=== PATIENT | male | born 1965 | race African-American/Black ===

== ENCOUNTER 2018-05-14 17:30 | Emergency (ER) | payer MEDICAID ==
[~2018-05-14] VITALS: Ht 172.7 cm; Wt 75.0 kg
[2018-05-14] MEDS ORDERED: PHENYTOIN SODIUM EXTENDED 100MG CAPSULE PO ONE (23:30)
[2018-05-14 23:33] VITALS: BP 123/79
== END 2018-05-14 23:33 | disposition home or self-care (01) ==
LOC: ER 17:30
DX: R56.9 Unspecified convulsions (principal); Z76.0 Encounter for issue of repeat prescription; F12.10 Cannabis abuse, uncomplicated; I10 Essential (primary) hypertension; J45.909 Unspecified asthma, uncomplicated; Z88.6 Allergy status to analgesic agent
CPT/HCPCS: 99283

== ENCOUNTER 2018-07-04 06:26 | Emergency (ER) | payer OTHER ==
[~2018-07-04] VITALS: Ht 175.3 cm; Wt 69.0 kg
[2018-07-04] MEDS ORDERED: SODIUM CHLORIDE 0.9% 1,000 ML IV ONE (07:01)
[2018-07-04] MEDS ORDERED: TETANUS, DIPHTHERIA, PERTUSSIS VAC/PF 0.5ML (>7YR OLD) IM ONE (07:15)
[2018-07-04] MEDS ORDERED: LIDOCAINE 1%/EPI 1:100,000 10 ML VIAL IJ ONE (07:15)
[2018-07-04 07:59] LABS: BASOPHILS % 0.6 % (0.0-2.0); EOSINOPHILS % 1.4 % (0.0-5.0); HEMATOCRIT. 39.8 % (42.0-52.0); HEMOGLOBIN. 13.3 g/dL (14.0-18.0); LYMPHOCYTES % 39.5 % (20.0-50.0); MEAN CORPUSCULAR HEMOGLOBIN 34.8 pg (28.0-32.0); MEAN CORPUSCULAR VOLUME 104.3 fL (80.0-94.0); MEAN PLATELET VOLUME 10.1 fl (7.4-10.4); MONOCYTES % 12.1 % (2.0-8.0); NEUTROPHILS % 46.4 % (40.0-76.0); PLATELET 97 x1000/uL (130-400); RED BLOOD CELL COUNT 3.82 mill/uL (4.7-6.1); RED CELL DISTRIBUTION WIDTH 12.9 % (11.6-14.6)
[2018-07-04 08:05] LABS: CHLORIDE 104 mEq/L (98-107)
[2018-07-04 08:10] LABS: ETHANOL BLOOD < 10 mg/dL
[2018-07-04 08:27] LABS: CARBAMAZEPINE < 0.5 ug/mL (4-12); PHENOBARBITAL < 2.1 ug/mL (15.0-40.0)
[2018-07-04] MEDS ORDERED: PHENYTOIN SODIUM 1,000 MG in SODIUM CHLORIDE 0.9% 100 ML IV ONE (08:30)
[2018-07-04] MEDS ORDERED: CARBAMAZEPINE 100MG TABLET CHEW PO ONE (08:30)
[2018-07-04] MEDS ORDERED: ACETAMINOPHEN 325MG TABLET PO ONE (10:00)
[2018-07-04 11:52] VITALS: BP 136/83
== END 2018-07-04 12:52 | disposition home or self-care (01) ==
LOC: ER 06:41
DX: S01.512A Laceration without foreign body of oral cavity, initial encounter (principal); R56.9 Unspecified convulsions; F12.10 Cannabis abuse, uncomplicated; J45.909 Unspecified asthma, uncomplicated; I10 Essential (primary) hypertension; W18.39XA Other fall on same level, initial encounter; Y93.89 Activity, other specified; Y92.89 Other specified places as the place of occurrence of the external cause; Y99.8 Other external cause status; Z88.6 Allergy status to analgesic agent
CPT/HCPCS: 36415; 70450; 70486; 80053; 80156; 80165; 80184; 80185; 82962; 85025; 85610; 87186; 90471; 90715; 96365; 96366; 99284; J1165; J3490; J7030; J7050; Z7610

== ENCOUNTER 2020-10-14 10:03 | Emergency (ER) | payer MEDICAID, OTHER ==
[~2020-10-14] VITALS: Ht 182.9 cm; Wt 87.0 kg
[2020-10-14] MEDS ORDERED: SODIUM CHLORIDE 0.9% 1,000 ML IV ONE (11:15)
[2020-10-14 11:26] LABS: BASOPHILS % 0.7 % (0.0-2.0); HEMATOCRIT. 39.7 % (42.0-52.0); HEMOGLOBIN. 13.8 g/dL (14.0-18.0); LYMPHOCYTES % 33.8 % (20.0-50.0); MEAN CORPUSCULAR HEMOGLOBIN 36.1 pg (28.0-32.0); MEAN CORPUSCULAR VOLUME 103.9 fL (80.0-94.0); MEAN PLATELET VOLUME 9.1 fl (7.4-10.4); MONOCYTES % 13.7 % (2.0-8.0); NEUTROPHILS % 50.8 % (40.0-76.0); PLATELET 113 x1000/uL (130-400); RED BLOOD CELL COUNT 3.82 mill/uL (4.7-6.1); RED CELL DISTRIBUTION WIDTH 12.5 % (11.6-14.6)
[2020-10-14 11:30] LABS: CHLORIDE 98 mEq/L (98-107)
[2020-10-14 11:37] LABS: ETHANOL BLOOD < 10 mg/dL
[2020-10-14 11:38] LABS: PHENOBARBITAL < 2.1 ug/mL (15.0-40.0)
[2020-10-14 11:44] LABS: CARBAMAZEPINE 4.7 ug/mL (4-12)
[2020-10-14 11:45] LABS: VALPROIC ACID < 3.0 ug/mL (50-100)
[2020-10-14 12:02] LABS: *BARBITURATES SCREEN URINE NEGATIVE (NEGATIVE); *BENZODIAZEPINES SCREEN URINE NEGATIVE (NEGATIVE)
[2020-10-14 12:03] LABS: *AMPHETAMINES SCREEN URINE NEGATIVE (NEGATIVE); *COCAINE SCREEN URINE PRESUMTIVE POSITIVE (NEGATIVE); CANNABINOID URINE SCREEN PRESUMTIVE POSITIVE (NEGATIVE); METHADONE URINE SCREEN NEGATIVE (NEGATIVE); OPIATES URINE SCREEN NEGATIVE (NEGATIVE); PHENCYCLIDINE URINE SCREEN NEGATIVE (NEGATIVE)
[2020-10-14] MEDS ORDERED: PHENYTOIN SODIUM 1,000 MG in SODIUM CHLORIDE 0.9% 100 ML IV ONE (12:45)
[2020-10-14] MEDS ORDERED: CARBAMAZEPINE 200MG TABLET PO ONE (12:45)
[2020-10-14] MEDS ORDERED: PHEN100C4 MT (13:06)
[2020-10-14] MEDS ORDERED: CARB200T MT (13:06)
[2020-10-14 15:00] VITALS: BP 134/76
== END 2020-10-14 15:14 | disposition home or self-care (01) ==
LOC: ER 10:15
DX: R56.9 Unspecified convulsions (principal); J45.909 Unspecified asthma, uncomplicated; I10 Essential (primary) hypertension; Z86.73 Personal history of transient ischemic attack (TIA), and cerebral infarction without residual deficits; F12.10 Cannabis abuse, uncomplicated; Z88.6 Allergy status to analgesic agent
CPT/HCPCS: 36415; 80053; 80156; 80165; 80184; 80185; 80305; 80320; 83735; 85025; 93005; 96361; 96365; 99285; C1893; J1165; J7030; J7050; Z7610; G0480

== ENCOUNTER 2021-10-07 08:42 | Emergency (ER) | payer MEDICAID, OTHER ==
[~2021-10-07] VITALS: Ht 180.3 cm; Wt 81.0 kg
[~2021-10-07 08:42] MED LIST: CARB200T MT; PHEN100C4 MT
[2021-10-07 10:05] LABS: CLARITY URINE CLEAR (CLEAR); COLOR URINE YELLOW (YELLOW); KETONES URINE NEGATIVE (NEGATIVE); LEUKOCYTE ESTERASE URINE NEGATIVE (NEGATIVE); NITRITE URINE NEGATIVE (NEGATIVE); OCCULT BLOOD URINE NEGATIVE (NEGATIVE); PH URINE 6.5 (4.5-8.0); PROTEIN URINE NEGATIVE (NEGATIVE); SPECIFIC GRAVITY URINE 1.011 (1.005-1.030)
[2021-10-07 10:07] LABS: BASOPHILS % 0.5 % (0.0-2.0); EOSINOPHILS % 1.2 % (0.0-5.0); HEMATOCRIT. 40.4 % (42.0-52.0); HEMOGLOBIN. 13.9 g/dL (14.0-18.0); LYMPHOCYTES % 23.1 % (20.0-50.0); MEAN CORPUSCULAR HEMOGLOBIN 37.3 pg (28.0-32.0); MEAN CORPUSCULAR VOLUME 108.7 fL (80.0-94.0); MEAN PLATELET VOLUME 9.1 fl (7.4-10.4); NEUTROPHILS % 64.2 % (40.0-76.0); PLATELET 102 x1000/uL (130-400); RED BLOOD CELL COUNT 3.71 mill/uL (4.7-6.1); RED CELL DISTRIBUTION WIDTH 12.4 % (11.6-14.6)
[2021-10-07 10:20] LABS: CHLORIDE 105 mEq/L (98-107)
[2021-10-07 10:30] LABS: ETHANOL BLOOD < 10 mg/dL
[2021-10-07 10:31] LABS: CARBAMAZEPINE < 0.5 ug/mL (4-12)
[2021-10-07] MEDS ORDERED: CARBAMAZEPINE 200MG TABLET PO ONE (10:45)
[2021-10-07 10:58] LABS: *AMPHETAMINES SCREEN URINE NEGATIVE (NEGATIVE); *BARBITURATES SCREEN URINE NEGATIVE (NEGATIVE); *BENZODIAZEPINES SCREEN URINE NEGATIVE (NEGATIVE); *COCAINE SCREEN URINE PRESUMTIVE POSITIVE (NEGATIVE); CANNABINOID URINE SCREEN PRESUMTIVE POSITIVE (NEGATIVE); METHADONE URINE SCREEN NEGATIVE (NEGATIVE); OPIATES URINE SCREEN NEGATIVE (NEGATIVE); PHENCYCLIDINE URINE SCREEN NEGATIVE (NEGATIVE)
[2021-10-07 11:29] VITALS: BP 142/75
[2021-10-07] MEDS ORDERED: CARBAMAZEPINE 200MG TABLET PO NR (11:30)
== END 2021-10-07 13:03 | disposition home or self-care (01) ==
LOC: ER 08:42
DX: G40.909 Epilepsy, unspecified, not intractable, without status epilepticus (principal); I10 Essential (primary) hypertension; J45.909 Unspecified asthma, uncomplicated; F12.10 Cannabis abuse, uncomplicated; F10.21 Alcohol dependence, in remission; Z86.73 Personal history of transient ischemic attack (TIA), and cerebral infarction without residual deficits; Z88.6 Allergy status to analgesic agent
CPT/HCPCS: 36415; 80053; 80156; 80185; 80305; 80320; 81003; 82962; 85025; 99283; G0480

== ENCOUNTER 2021-12-16 12:44 | Emergency (ER) | payer MEDICAID ==
[~2021-12-16] VITALS: Ht 175.3 cm; Wt 82.0 kg
[2021-12-16] MEDS ORDERED: IBUPROFEN 600MG TABLET PO STA (13:26)
[2021-12-16] MEDS ORDERED: SODIUM CHLORIDE 0.9% 1,000 ML IV ONE (13:30)
[2021-12-16 14:28] LABS: CLARITY URINE CLEAR (CLEAR); COLOR URINE YELLOW (YELLOW); KETONES URINE NEGATIVE (NEGATIVE); LEUKOCYTE ESTERASE URINE NEGATIVE (NEGATIVE); NITRITE URINE NEGATIVE (NEGATIVE); OCCULT BLOOD URINE NEGATIVE (NEGATIVE); PROTEIN URINE NEGATIVE (NEGATIVE); SPECIFIC GRAVITY URINE 1.005 (1.005-1.030)
[2021-12-16 14:29] LABS: HEMATOCRIT. 42.9 % (42.0-52.0); HEMOGLOBIN. 14.6 g/dL (14.0-18.0); MEAN CORPUSCULAR HEMOGLOBIN 36.5 pg (28.0-32.0); MEAN CORPUSCULAR VOLUME 107.3 fL (80.0-94.0); PLATELET 181 x1000/uL (130-400); RED CELL DISTRIBUTION WIDTH 12.7 % (11.6-14.6)
[2021-12-16 14:57] VITALS: BP 147/86
[2021-12-16 15:02] LABS: *AMPHETAMINES SCREEN URINE NEGATIVE (NEGATIVE); *BARBITURATES SCREEN URINE NEGATIVE (NEGATIVE); *BENZODIAZEPINES SCREEN URINE NEGATIVE (NEGATIVE); *COCAINE SCREEN URINE PRESUMTIVE POSITIVE (NEGATIVE); CANNABINOID URINE SCREEN PRESUMTIVE POSITIVE (NEGATIVE); METHADONE URINE SCREEN NEGATIVE (NEGATIVE); OPIATES URINE SCREEN NEGATIVE (NEGATIVE); PHENCYCLIDINE URINE SCREEN NEGATIVE (NEGATIVE)
[2021-12-16 15:03] LABS: PLATELET ESTIMATE NORMAL
[2021-12-16 16:05] LABS: CHLORIDE 105 mEq/L (98-107)
[2021-12-16] MEDS ORDERED: PHEN100C4 MT (16:12)
[2021-12-16 16:14] LABS: ETHANOL BLOOD 145 mg/dL
[2021-12-16] MEDS ORDERED: PHENYTOIN 100 MG/4 ML UDC NG ONE (16:45)
[2021-12-16] MEDS ORDERED: PHENYTOIN SODIUM EXTENDED 100MG CAPSULE PO ONE (16:45)
== END 2021-12-16 17:45 | disposition home or self-care (01) ==
LOC: ER 12:44
DX: G40.909 Epilepsy, unspecified, not intractable, without status epilepticus (principal); M79.601 Pain in right arm; R53.1 Weakness; I10 Essential (primary) hypertension; J45.909 Unspecified asthma, uncomplicated; F17.210 Nicotine dependence, cigarettes, uncomplicated; Z86.73 Personal history of transient ischemic attack (TIA), and cerebral infarction without residual deficits; Z71.6 Tobacco abuse counseling; F10.21 Alcohol dependence, in remission; Z91.14 Patient's other noncompliance with medication regimen; Z79.82 Long term (current) use of aspirin
CPT/HCPCS: 36415; 80053; 80185; 80305; 80320; 81003; 82962; 85025; 93005; 96360; 99284; 99406; J7030; G0480

== ENCOUNTER 2022-10-19 04:35 | Emergency (ER) | payer MEDICAID, OTHER ==
[~2022-10-19] VITALS: Ht 170.2 cm; Wt 70.0 kg
[2022-10-19] MEDS ORDERED: CARBAMAZEPINE 200MG TABLET PO ONE (05:15)
[2022-10-19] MEDS ORDERED: PHENYTOIN SODIUM EXTENDED 100MG CAPSULE PO ONE (05:15)
[2022-10-19] MEDS ORDERED: PHEN100C4 MT (05:30)
[2022-10-19] MEDS ORDERED: CARB200T MT (05:30)
[2022-10-19 05:55] VITALS: BP 129/84
== END 2022-10-19 05:59 | disposition home or self-care (01) ==
LOC: ER 04:40
DX: R56.9 Unspecified convulsions (principal)
CPT/HCPCS: 99283

== ENCOUNTER 2022-10-19 06:37 | Emergency (ER) | payer MEDICAID, OTHER ==
[~2022-10-19] VITALS: Ht 175.3 cm; Wt 76.0 kg
[2022-10-19 08:35] VITALS: BP 140/70
== END 2022-10-19 08:36 | disposition home or self-care (01) ==
LOC: ER 06:37
DX: R56.9 Unspecified convulsions (principal); Z88.6 Allergy status to analgesic agent
CPT/HCPCS: 82962; 99282

== ENCOUNTER 2023-02-09 14:59 | Emergency (ER) | payer MEDICAID ==
[~2023-02-09] VITALS: Ht 167.6 cm; Wt 75.0 kg
[2023-02-09 15:04] VITALS: BP 153/90; PULSE 94; RESP 20; TEMP 98.4; O2SAT 98
[2023-02-09] MEDS ORDERED: CARBAMAZEPINE 200MG TABLET PO ONE (16:00)
[2023-02-09] MEDS ORDERED: PHENYTOIN SODIUM EXTENDED 100MG CAPSULE PO ONE (16:00)
[2023-02-09] MEDS ORDERED: PHENYTOIN SODIUM EXTENDED 100MG CAPSULE PO NR (17:00)
[2023-02-09 17:15] LABS: CARBAMAZEPINE 7.5 ug/mL (4-12)
[2023-02-09] MEDS ORDERED: HYDR25TA PO (17:18)
[2023-02-09] MEDS ORDERED: BECL10.6 IH (17:18)
[2023-02-09] MEDS ORDERED: ALBU90AE2 PO (17:18)
[2023-02-09] MEDS ORDERED: FERR325T30 PO (17:18)
[2023-02-09] MEDS ORDERED: CARB200T6 PO (17:18)
[2023-02-09 17:25] LABS: PHENYTOIN < 0.4 ug/mL (10-20)
[2023-02-09] MEDS ORDERED: PHEN300C6 MT (18:17)
[2023-02-09] MEDS ORDERED: CARB200T6 MT (18:17)
[2023-02-09] MEDS ORDERED: MELO-104 MT (19:58)
== END 2023-02-10 01:17 | disposition home or self-care (01) ==
LOC: ER 14:59
DX: G40.909 Epilepsy, unspecified, not intractable, without status epilepticus (principal); I10 Essential (primary) hypertension; Z79.899 Other long term (current) drug therapy
CPT/HCPCS: 36415; 73502; 80156; 80185; 99284

== ENCOUNTER 2023-09-20 07:25 | Emergency (ER) | payer MEDICAID, OTHER ==
[~2023-09-20] VITALS: Ht 177.8 cm; Wt 78.0 kg
[~2023-09-20 07:25] MED LIST changes: +ALBU90AE2 PO; +BECL10.6 IH; -CARB200T MT; +CARB200T6 MT; +CARB200T6 PO; +FERR325T30 PO; +HYDR25TA PO; +MELO-104 MT; -PHEN100C4 MT; +PHEN300C6 MT
[2023-09-20 07:26] VITALS: O2SAT 100
[2023-09-20] MEDS: LEVETIRACETAM 1000MG PREMIX 100 ML IV ONE (08:51)
[2023-09-20 09:16] LABS: BASOPHILS % 0.4 % (0.0-2.0); DIFFERENTIAL COMMENT 0; EOSINOPHILS % 0.6 % (0.0-5.0); HEMATOCRIT. 39.6 % (42.0-52.0); HEMOGLOBIN. 13.4 g/dL (14.0-18.0); LYMPHOCYTES % 25.9 % (20.0-50.0); MEAN CORPUSCULAR HEMOGLOBIN 36.7 pg (28.0-32.0); MEAN CORPUSCULAR HGB CONC 33.9 g/dL (31.0-37.0); MEAN CORPUSCULAR VOLUME 108.4 fL (80.0-94.0); MEAN PLATELET VOLUME 8.6 fl (7.4-10.4); MONOCYTES % 12.6 % (2.0-8.0); NEUTROPHILS % 60.5 % (40.0-76.0); PLATELET 122 x1000/uL (130-400); RED BLOOD CELL COUNT 3.65 mill/uL (4.7-6.1); RED CELL DISTRIBUTION WIDTH 12.4 % (11.6-14.6); WHITE BLOOD COUNT 3.7 x1000/uL (4.5-11.0)
[2023-09-20 09:22] LABS: CHLORIDE 103 mEq/L (98-107); POTASSIUM 3.6 mEq/L (3.5-5.1); SODIUM 137 mEq/L (136-145)
[2023-09-20 09:23] LABS: CARBON DIOXIDE 30 mEq/L (21-32); INR 0.9; PROTHROMBIN TIME 9.8 sec (9.6-11.0)
[2023-09-20 09:28] LABS: CREATININE 0.7 mg/dL (0.6-1.3); GLUCOSE 109 mg/dL (70-105); UREA NITROGEN BLOOD 6 mg/dL (9-23)
[2023-09-20 09:30] LABS: ALANINE AMINOTRANSFERASE 47 IU/L (10-49); ALBUMIN 3.8 g/dL (3.2-4.8); ASPARTATE AMINOTRANSFERASE 94 IU/L (<34); BILIRUBIN TOTAL 0.5 mg/dL (0.1-1.0); PROTEIN TOTAL 7.3 g/dL (6.0-8.3)
[2023-09-20 09:48] LABS: ETHANOL BLOOD < 10 mg/dL (<10); TROPONIN I HIGH SENSITIVITY < 4 ng/L (3.0-53)
[2023-09-20] MEDS ORDERED: PHEN300C6 MT (11:04)
[2023-09-20 11:41] VITALS: BP 146/72; PULSE 82; RESP 20; TEMP 98.6
[2023-09-20 14:04] LABS: CALCIUM 9.2 mg/dL (8.7-10.4)
== END 2023-09-20 11:42 | disposition home or self-care (01) ==
LOC: ER 07:25
DX: G40.909 Epilepsy, unspecified, not intractable, without status epilepticus (principal); I10 Essential (primary) hypertension; J45.909 Unspecified asthma, uncomplicated; Z88.6 Allergy status to analgesic agent; Z79.899 Other long term (current) drug therapy
CPT/HCPCS: 80053; 80320; 82310; 85025; 85610; 84484; 36415; 93005; 96365; 96366; 99284; J1953; G0480

== ENCOUNTER 2024-07-21 10:31 | Emergency (ER) | payer MEDICAID ==
[~2024-07-21] VITALS: Ht 165.1 cm; Wt 70.0 kg
[~2024-07-21 10:31] MED LIST changes: -ALBU90AE2 PO; +ALBU90AE3 PO
[2024-07-21 10:33] VITALS: O2SAT 98
[2024-07-21 11:09] VITALS: TEMP 36.7
[2024-07-21 11:17] LABS: BASOPHILS % 1.6 % (0.0-2.0); DIFFERENTIAL COMMENT 0; EOSINOPHILS % 0.3 % (0.0-5.0); HEMATOCRIT. 40.1 % (42.0-52.0); HEMOGLOBIN. 13.6 g/dL (14.0-18.0); LYMPHOCYTES % 22.2 % (20.0-50.0); MEAN CORPUSCULAR HEMOGLOBIN 35.3 pg (28.0-32.0); MEAN CORPUSCULAR VOLUME 103.9 fL (80.0-94.0); MEAN PLATELET VOLUME 8.7 fl (7.4-10.4); MONOCYTES % 7.8 % (2.0-8.0); NEUTROPHILS % 68.1 % (40.0-76.0); PLATELET 121 x1000/uL (130-400); RED BLOOD CELL COUNT 3.86 mill/uL (4.7-6.1); RED CELL DISTRIBUTION WIDTH 14.9 % (11.6-14.6); WHITE BLOOD COUNT 3.5 x1000/uL (4.5-11.0)
[2024-07-21 11:25] LABS: CHLORIDE 99 mEq/L (98-107); POTASSIUM 5.7 mEq/L (3.5-5.1); SODIUM 134 mEq/L (136-145)
[2024-07-21 11:26] LABS: CALCIUM 8.9 mg/dL (8.7-10.4); CARBON DIOXIDE 20 mEq/L (21-32)
[2024-07-21 11:31] LABS: CREATININE 0.7 mg/dL (0.6-1.3); GLUCOSE 71 mg/dL (70-105)
[2024-07-21 11:32] LABS: CARBAMAZEPINE 2.7 ug/mL (4-12); ETHANOL BLOOD 37 mg/dL (<10); PHENYTOIN 4.5 ug/mL (10-20); UREA NITROGEN BLOOD 8 mg/dL (9-23)
[2024-07-21 11:37] LABS: VALPROIC ACID < 3.0 ug/mL (50-100)
[2024-07-21 12:45] LABS: CLARITY URINE CLEAR (CLEAR); COLOR URINE YELLOW (YELLOW); GLUCOSE URINE NEGATIVE (NEGATIVE); KETONES URINE 2+ (NEGATIVE); LEUKOCYTE ESTERASE URINE NEGATIVE (NEGATIVE); NITRITE URINE NEGATIVE (NEGATIVE); OCCULT BLOOD URINE 1+ (NEGATIVE); PH URINE 5.5 (4.5-8.0); PROTEIN URINE 2+ (NEGATIVE); SPECIFIC GRAVITY URINE 1.021 (1.005-1.030); UROBILINOGEN URINE 0.2 E.U./dL (0.2-1.0)
[2024-07-21 12:54] LABS: *AMPHETAMINES SCREEN URINE NEGATIVE (NEGATIVE); *BARBITURATES SCREEN URINE NEGATIVE (NEGATIVE); *BENZODIAZEPINES SCREEN URINE NEGATIVE (NEGATIVE); *COCAINE SCREEN URINE PRESUMPTIVE POSITIVE (NEGATIVE); CANNABINOID URINE SCREEN PRESUMPTIVE POSITIVE (NEGATIVE); ECSTASY MDMA SCREEN URINE NEGATIVE (NEGATIVE); METHADONE URINE SCREEN NEGATIVE (NEGATIVE); OPIATES URINE SCREEN NEGATIVE (NEGATIVE); PHENCYCLIDINE URINE SCREEN NEGATIVE (NEGATIVE)
[2024-07-21 13:03] LABS: BACTERIA URINE FEW; RBC URINE 0-2 /hpf (0-2); SQUAMOUS EPITHELIAL CELL URINE RARE /lpf (RARE/1+); WBC URINE 0-2 /hpf (0-2); YEAST URINE NONE SEEN
[2024-07-21] MEDS ORDERED: PHEN100C4 PO (13:20)
[2024-07-21] MEDS ORDERED: CARB200T6 PO (13:20)
[2024-07-21 13:45] VITALS: BP 163/80; PULSE 69; RESP 17; O2SAT 100
== END 2024-07-21 13:54 | disposition home or self-care (01) ==
LOC: ER 10:31
DX: G40.909 Epilepsy, unspecified, not intractable, without status epilepticus (principal); Z88.6 Allergy status to analgesic agent; Z79.899 Other long term (current) drug therapy; I10 Essential (primary) hypertension; J45.909 Unspecified asthma, uncomplicated
CPT/HCPCS: 80305; 80048; 81003; 80320; 80156; 80185; 80165; 85025; 36415; 71045; 99284; Z7610 ×2; G0480

== ENCOUNTER 2024-12-07 21:39 | Emergency (ER) | payer MEDICAID ==
[~2024-12-07] VITALS: Ht 182.9 cm; Wt 82.0 kg
[~2024-12-07 21:39] MED LIST changes: +PHEN100C4 PO
[2024-12-07 21:45] VITALS: O2SAT 99
[2024-12-07] MEDS: SODIUM CHLORIDE 0.9% 1,000 ML IV ONE (22:40)
[2024-12-07 22:42] LABS: BASOPHILS % 0.6 % (0.0-2.0); EOSINOPHILS % 0.3 % (0.0-5.0); HEMATOCRIT. 36.9 % (42.0-52.0); HEMOGLOBIN. 12.7 g/dL (14.0-18.0); LYMPHOCYTES % 46.7 % (20.0-50.0); MEAN PLATELET VOLUME 8.3 fl (7.4-10.4); MONOCYTES % 10.6 % (2.0-8.0); NEUTROPHILS % 41.8 % (40.0-76.0); PLATELET 98 x1000/uL (130-400); RED BLOOD CELL COUNT 3.48 mill/uL (4.7-6.1); RED CELL DISTRIBUTION WIDTH 12.3 % (11.6-14.6)
[2024-12-07 22:58] LABS: CREATININE 0.7 mg/dL (0.6-1.3)
[2024-12-07 22:59] LABS: CARBAMAZEPINE 5.3 ug/mL (4-12); ETHANOL BLOOD 240 mg/dL (<10); UREA NITROGEN BLOOD < 5 mg/dL (9-23)
[2024-12-07 23:02] LABS: PHENYTOIN < 2.0 ug/mL (10-20)
[2024-12-07] MEDS: PHENYTOIN SODIUM EXTENDED 100MG CAPSULE PO ONE (23:07)
[2024-12-07] MEDS: POTASSIUM CHLORIDE 20MEQ/PACKET PO ONE (23:07)
[2024-12-07] MEDS: HYDROCHLOROTHIAZIDE 25MG TABLET PO STA (23:37)
[2024-12-07] MEDS: CARBAMAZEPINE 100MG TABLET CHEW PO ONE (23:38)
[2024-12-08 00:22] LABS: CLARITY URINE CLEAR (CLEAR); COLOR URINE YELLOW (YELLOW); GLUCOSE URINE NEGATIVE (NEGATIVE); KETONES URINE NEGATIVE (NEGATIVE); LEUKOCYTE ESTERASE URINE NEGATIVE (NEGATIVE); NITRITE URINE NEGATIVE (NEGATIVE); OCCULT BLOOD URINE NEGATIVE (NEGATIVE); PH URINE 6.0 (4.5-8.0); PROTEIN URINE 1+ (NEGATIVE); SPECIFIC GRAVITY URINE 1.007 (1.005-1.030); UROBILINOGEN URINE 0.2 E.U./dL (0.2-1.0)
[2024-12-08 00:33] LABS: *AMPHETAMINES SCREEN URINE NEGATIVE (NEGATIVE); *BARBITURATES SCREEN URINE NEGATIVE (NEGATIVE); *BENZODIAZEPINES SCREEN URINE NEGATIVE (NEGATIVE); *COCAINE SCREEN URINE PRESUMPTIVE POSITIVE (NEGATIVE); CANNABINOID URINE SCREEN PRESUMPTIVE POSITIVE (NEGATIVE); ECSTASY MDMA SCREEN URINE NEGATIVE (NEGATIVE); METHADONE URINE SCREEN NEGATIVE (NEGATIVE); OPIATES URINE SCREEN NEGATIVE (NEGATIVE); PHENCYCLIDINE URINE SCREEN NEGATIVE (NEGATIVE)
[2024-12-08 00:35] LABS: BACTERIA URINE NONE SEEN; RBC URINE NONE SEEN /hpf (0-2); SQUAMOUS EPITHELIAL CELL URINE FEW /lpf (RARE/1+); WBC URINE NONE SEEN /hpf (0-2)
[2024-12-08 01:54] VITALS: BP 136/77; PULSE 87; RESP 18; TEMP 36.9; O2SAT 99
== END 2024-12-08 02:03 | disposition home or self-care (01) ==
LOC: ER 21:39
DX: F10.129 Alcohol abuse with intoxication, unspecified (principal); F17.200 Nicotine dependence, unspecified, uncomplicated; G40.909 Epilepsy, unspecified, not intractable, without status epilepticus; F19.10 Other psychoactive substance abuse, uncomplicated; I10 Essential (primary) hypertension; Z79.1 Long term (current) use of non-steroidal anti-inflammatories (NSAID); Z79.51 Long term (current) use of inhaled steroids; Z79.899 Other long term (current) drug therapy; Z88.6 Allergy status to analgesic agent; Y90.8 Blood alcohol level of 240 mg/100 ml or more
CPT/HCPCS: 80048; 80320; 80156; 80185; 85025; 36415; 96360; 99285; 80305; 81003; J7030; Z7610; G0480